=== PATIENT | male | born 1970 | race Caucasian/White ===

== ENCOUNTER 2018-05-22 08:12 | Emergency (ER) | payer BC ==
--- NOTE | 2018-05-22 08:20 | UC ---
Lower Extremity/Ankle HPI - HPI Summary HPI Summary: 48 year old M with foot pain . Has history of fracture in the foot and pain in the same area. Not sure of injury. Did perform Yoga last week and that may have caused pain. Pain worse with walking. Pain when walking 5/10 and hurts to walk. No recent trauma. Patient is concerned because of his previous fracture he would like to be evaluated further. He denies any other concerns. 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 He has seen podiatry in the past as well. No other concerns no ankle knee or back pain. - History of Current Complaint Stated Complaint: LEFT FOOT COMPLAINT Time Seen by Provider: 05/22/18 08:18 Hx Obtained From: Patient Aggravating Factor(s): Standing, Ambulation Alleviating Factor(s): Rest Able to Bear Weight: Yes - Allergies/Home Medications Allergies/Adverse Reactions: Allergies Allergy/AdvReac Type Severity Reaction Status Date / Time No Known Allergies Allergy Verified 05/22/18 08:32 Home Medications: Home Medications Cholecalciferol TAB* [Vitamin D TAB*] 2,000 units PO DAILY 05/22/18 [History Confirmed 05/22/18] Lisinopril TAB* [Prinivil TAB*] 10 mg PO DAILY 05/22/18 [History Confirmed 05/22] Testosterone [Androderm] 4 mg TD DAILY 05/22/18 [History Confirmed 05/22/18] PMH/Surg Hx/FS Hx/Imm Hx Previously Healthy: Yes - Family History Known Family History: Positive: None - Social History Occupation: Employed Full-time Lives: With Family Alcohol Use: Rare Substance Use Type: None Review of Systems Musculoskeletal: Arthralgia, Decreased ROM Is Patient Immunocompromised?: No All Other Systems Reviewed And Are Negative: Yes Physical Exam Triage Information Reviewed: Yes Appearance: Well-Appearing, No Pain Distress, Well-Nourished Vital Signs Reviewed: Yes Eye Exam: Normal ENT Exam: Normal Dental Exam: Normal Neck: Positive: 1 Respiratory Exam: Normal Cardiovascular Exam: Normal Musculoskeletal Exam: Normal Musculoskeletal: Positive: Strength Intact, ROM Intact, No Edema, Other: - tenderness to the anterior foot / forefoot . no ecchymosis. no obvious deformity Neurological Exam: Normal Psychological Exam: Normal Skin Exam: Normal Diagnostics - Laboratory Diagnostic Studies Completed/Ordered: IMPRESSION: Cortical thickening second metatarsal. The possibility of stress related. change should BE considered. Lower Extremity Course/Dx - Course Course Of Treatment: At this time with patient's history of foot fracture we will treat as an early stress fracture advised to wear postop shoe and consider his boat which he has at home. Patient will follow-up with his machine heel seat fitter whom he has already established care with. He is aware to take it easy at this time and where for supportive footwear. - Differential Dx/Diagnosis Differential Diagnosis/HQI/PQRI: Fracture (Closed), Sprain, Strain Provider Diagnoses: Left foot pain Discharge - Sign-Out/Discharge Documenting (check all that apply): Patient Departure All imaging exams completed and their final reports reviewed: Yes - Discharge Plan Condition: Good Disposition: HOME Patient Education Materials: Foot Fracture in Adults (ED) Referrals: Priya Kiran [Primary Care Provider] - 4 Days Additional Instructions: Xray revealed : IMPRESSION: Cortical thickening second metatarsal. The possibility of stress related change should BE considered. please also follow up with your machine heel seat fitter in 1-2 weeks - Billing Disposition and Condition Condition: GOOD Disposition: Home
[2018-05-22 08:32] VITALS: BP 133/93
--- NOTE | 2018-05-22 09:08 | RAD ---
Indication: Left foot pain. 3 views of left foot demonstrates no fracture or dislocation. No other bone or joint abnormality is identified. There is cortical thickening of the second metatarsal for which stress related change cannot BE excluded. IMPRESSION: Cortical thickening second metatarsal. The possibility of stress related change should BE considered.
== END 2018-05-22 09:25 | disposition home or self-care (01) ==
LOC: UCCORT 08:12
DX: M79.672 Pain in left foot (principal)
CPT/HCPCS: 99202; G0463